=== PATIENT | female | born 1945 | race Native Hawaiian/Other Pacific Islander ===

== ENCOUNTER 2017-03-16 09:32 | Outpatient (CLI) | payer OTHER, MEDICARE | END 2017-03-16 09:42 | disposition short-term general hospital (02) | LOC: AMB 09:32 | DX: M79.605 Pain in left leg (principal); M25.552 Pain in left hip; M25.512 Pain in left shoulder; S00.85XA Superficial foreign body of other part of head, initial encounter; T15.82XA Foreign body in other and multiple parts of external eye, left eye, initial encounter; M54.5 Low back pain; V49.49XA Driver injured in collision with other motor vehicles in traffic accident, initial encounter; Y92.414 Local residential or business street as the place of occurrence of the external cause | CPT/HCPCS: A0425; A0427 ==

== ENCOUNTER 2017-03-16 09:53 | Emergency (ER) | payer OTHER, MEDICARE ==
[~2017-03-16] VITALS: Ht 165.1 cm; Wt 102.1 kg
[2017-03-16 10:44] LABS: PLATELET COUNT 332 K/uL (152-353)
[2017-03-16 10:58] LABS: POTASSIUM 3.5 mmol/L (3.6-5.2); SODIUM 138 mmol/L (136-145)
== END 2017-03-16 12:10 | disposition home or self-care (01) ==
LOC: ED 09:53
DX: S13.8XXA Sprain of joints and ligaments of other parts of neck, initial encounter (principal); S80.02XA Contusion of left knee, initial encounter; S80.01XA Contusion of right knee, initial encounter; S20.212A Contusion of left front wall of thorax, initial encounter; S20.211A Contusion of right front wall of thorax, initial encounter; S20.222A Contusion of left back wall of thorax, initial encounter; S20.221A Contusion of right back wall of thorax, initial encounter; S30.0XXA Contusion of lower back and pelvis, initial encounter; R91.1 Solitary pulmonary nodule; M17.0 Bilateral primary osteoarthritis of knee; M47.892 Other spondylosis, cervical region; M47.897 Other spondylosis, lumbosacral region; V43.52XA Car driver injured in collision with other type car in traffic accident, initial encounter
CPT/HCPCS: 80053; 85027; 99283

== ENCOUNTER 2017-05-13 10:19 | Outpatient (CLI) | payer OTHER, MEDICARE | END 2017-05-13 11:20 | disposition home or self-care (01) | LOC: RAD 10:19 | DX: M25.512 Pain in left shoulder (principal) ==

== ENCOUNTER 2017-05-24 13:33 | Outpatient (CLI) | payer OTHER, MEDICARE | END 2017-05-24 19:25 | disposition home or self-care (01) | LOC: MRI 13:33 | DX: M25.512 Pain in left shoulder (principal) ==

== ENCOUNTER 2019-04-21 09:50 | Emergency (ER) | payer OTHER ==
[~2019-04-21] VITALS: Ht 167.6 cm; Wt 95.3 kg
[2019-04-21 10:16] VITALS: TEMP 97.7
[2019-04-21 10:48] VITALS: BP 148/74
== END 2019-04-21 10:48 | disposition home or self-care (01) ==
LOC: ED 09:50
DX: N39.0 Urinary tract infection, site not specified (principal); R31.9 Hematuria, unspecified; R10.2 Pelvic and perineal pain
CPT/HCPCS: 81000; 87086; 87088; 96372; 99283; 99284; J0696

== ENCOUNTER 2019-08-04 10:00 | Observation (INO) | payer OTHER ==
[~2019-08-04] VITALS: Ht 165.1 cm; Wt 96.6 kg
[2019-08-04 12:44] VITALS: BP 152/80; TEMP 98; Ht 165.1 cm; Wt 96.6 kg
[2019-08-04 13:17] LABS: PLATELET COUNT 322 K/uL (152-353)
[2019-08-04 13:24] LABS: POTASSIUM 4.2 mmol/L (3.6-5.2)
[2019-08-04] MEDS ORDERED: FURO20TA67 PO (14:20)
[2019-08-04] MEDS ORDERED: KLOR-CON M1010 MEQ PO (14:20)
[2019-08-04] MEDS ORDERED: DOXYCYCLINE100 MG PO (14:21)
[2019-08-04] MEDS ORDERED: NP THYROID90 MG PO (14:21)
[2019-08-04 15:27] LABS: PARTIAL THROMBOPLASTIN TIME 27.2 SECONDS (24.5-33.6)
[2019-08-04 16:23] VITALS: BP 164/76; TEMP 97.7
[2019-08-04 20:00] VITALS: BP 137/79; TEMP 98
[2019-08-04 23:50] VITALS: BP 137/61; TEMP 98.1
[2019-08-05 01:16] LABS: POTASSIUM 3.6 mmol/L (3.6-5.2)
[2019-08-05 01:19] LABS: PLATELET COUNT 311 K/uL (152-353)
[2019-08-05 04:00] VITALS: BP 136/63; TEMP 98.5
[2019-08-05 08:00] VITALS: BP 143/86; TEMP 97.9
[2019-08-05] MEDS ORDERED: FURO40TA93 PO (12:22)
[2019-08-05] MEDS ORDERED: LEVO0.1T6 PO (12:23)
[2019-08-05] MEDS ORDERED: POTA20TA4 PO (12:23)
== END 2019-08-05 13:05 | disposition home or self-care (01) ==
LOC: MED/SURG 10:00
PROVIDERS: ADMIT Internal Medicine
DX: R60.0 Localized edema (principal); D68.0 Von Willebrand disease; E03.8 Other specified hypothyroidism; G47.33 Obstructive sleep apnea (adult) (pediatric); I25.10 Atherosclerotic heart disease of native coronary artery without angina pectoris; I51.7 Cardiomegaly
CPT/HCPCS: 36415; 80048; 80053; 84439; 84443; 84480; 85027; 85379; 85610; 85730; 99220; G0378; G0379; J1940; Q9963

== ENCOUNTER 2019-08-15 08:00 | Outpatient (CLI) | payer OTHER ==
[~2019-08-15 08:00] MED LIST: DOXYCYCLINE100 MG PO; FURO20TA67 PO; FURO40TA93 PO; KLOR-CON M1010 MEQ PO; LEVO0.1T6 PO; NP THYROID90 MG PO; POTA20TA4 PO
== END 2019-08-15 20:13 | disposition home or self-care (01) ==
LOC: RESP 08:00
DX: E03.8 Other specified hypothyroidism (principal); I50.9 Heart failure, unspecified
CPT/HCPCS: 93306

== ENCOUNTER 2019-09-01 08:36 | Outpatient (CLI) | payer OTHER | END 2019-09-01 19:06 | disposition home or self-care (01) | LOC: CT 08:36 | DX: R93.89 Abnormal findings on diagnostic imaging of other specified body structures (principal) ==

== ENCOUNTER 2020-11-29 08:35 | Outpatient (CLI) | payer OTHER | END 2020-11-29 21:47 | disposition home or self-care (01) | LOC: RAD 08:35 | PROVIDERS: ATTEND Internal Medicine Rheumatology | DX: M06.4 Inflammatory polyarthropathy (principal); M19.041 Primary osteoarthritis, right hand; M19.042 Primary osteoarthritis, left hand; M85.89 Other specified disorders of bone density and structure, multiple sites ==

== ENCOUNTER 2022-04-07 12:43 | Outpatient (CLI) | payer OTHER | END 2022-04-07 19:16 | disposition home or self-care (01) | LOC: US 12:43 | PROVIDERS: ATTEND Nurse Practitioner Family | DX: R22.1 Localized swelling, mass and lump, neck (principal) ==

== ENCOUNTER 2023-04-06 07:45 | Outpatient (CLI) | payer OTHER | END 2023-04-06 19:04 | disposition home or self-care (01) | LOC: LABW 07:45 | PROVIDERS: ATTEND Internal Medicine Cardiovascular Disease | DX: R01.1 Cardiac murmur, unspecified (principal); R00.2 Palpitations; R06.09 Other forms of dyspnea; I10 Essential (primary) hypertension | CPT/HCPCS: 36415; 83880 ==